=== PATIENT | female | born 1965 | race Hispanic/Latino ===

== ENCOUNTER 2017-04-07 11:51 | Emergency (ER) | payer MEDICAID ==
[2017-04-07 12:07] VITALS: RESP 18; TEMP 98.2
[2017-04-07] MEDS ORDERED: guaiFENesin 100 mg/5 ml Syrup UD PO STA (12:26)
[2017-04-07] MEDS ORDERED: Albuterol-Ipratrop 3 mg / 0.5 (3 ml) UD INH STA (12:26)
[2017-04-07] MEDS ORDERED: guaiFENesin 100 mg/5 ml Syrup UD ONE (12:37)
--- NOTE | 2017-04-07 12:45 | C.PDOC ---
History Of Present Illness A 51 year old female smoker (1/2 ppd), whose past medical history includes migraines, presents to the emergency department for dry on productive cough and right posterior chest discomfort, which began 4 days ago. The patient states she has occasionally taken cough medication, but denies taking any medications today. The patient has pure albuterol puffer technique. The patient denies any fever, chest pain, shortness of breath, abdominal pain, or any other complaints at this time. Time Seen by Provider: 04/07/17 12:21 Chief Complaint (Nursing): Cough, Cold, Congestion History/Exam Limitations: no limitations Onset/Duration Of Symptoms: Days (x 4 days) Current Symptoms Are (Timing): Still Present Associated Symptoms: Cough. denies: Fever, Nausea, Vomiting, Diarrhea Past Medical History Reviewed: Historical Data, Nursing Documentation, Vital Signs Vital Signs: Last Vital Signs Temp 98.2 F 04/07/17 12:01 Pulse 75 04/07/17 13:10 Resp 18 04/07/17 13:10 BP 120/70 04/07/17 13:10 Pulse Ox 96 04/07/17 16:34 - Medical History PMH: Migraine Surgical History: Tonsillectomy - [facility] Procedures INJECT/INFUSE NEC (03/05/13) Family History: States: Unknown Family Hx - Social History Hx Tobacco Use: No Hx Alcohol Use: No Hx Substance Use: No - Immunization History Hx Tetanus Toxoid Vaccination: No Hx Influenza Vaccination: Yes Hx Pneumococcal Vaccination: No Review Of Systems Except As Marked, All Systems Reviewed And Found Negative. Constitutional: Negative for: Fever Cardiovascular: Negative for: Chest Pain Respiratory: Positive for: Cough. Negative for: Shortness of Breath, Sputum Gastrointestinal: Negative for: Abdominal Pain Physical Exam - Physical Exam Appears: Well, Non-toxic, No Acute Distress Skin: Normal Color, Warm, Dry Head: Atraumatic, Normacephalic Eye(s): bilateral: Normal Inspection, PERRL, EOMI Nose: Normal Chest: Tenderness (Tender to the right posterior T5; no rash ), Other (No rash ) Cardiovascular: Rhythm Regular Respiratory: Rhonchi (mild scattered ronchi and wheezing ), Wheezing (mild scattered ronchi and wheezing ) Gastrointestinal/Abdominal: Normal Exam Back: Normal Inspection Extremity: Normal ROM Neurological/Psych: Oriented x3, Normal Speech, Normal Cognition, Normal Cranial Nerves ED Course And Treatment O2 Sat by Pulse Oximetry: 96 Medical Decision Making Medical Decision Making: Treatment Plan: -- EKG -- Acetaminophen, Albuterol, guaiFENesin -- Nebulizer, peak flow Progress Notes: mild viral bronchitis, NO pna/pnx, L chest costochondritis, no rash/zoster prob NOT flu from "flu shot" given 3 days ago prob related to smoking, mild bronchitis Disposition Doctor Will See Patient In The: Office Counseled Patient/Family Regarding: Studies Performed, Diagnosis - Disposition Referrals: Elsi Roach MD [Staff Provider] - Disposition: HOME/ ROUTINE Disposition Time: 12:41 Condition: GOOD Additional Instructions: albuterol puffer 2 puffs every 4 hours as needed Always use with your Aerochamber Spacer Curb smoking down to 4 ciggs/day Tylenol for R chest discomfort- costochondritis. Prescriptions: Albuterol HFA [Ventolin HFA 90 mcg/actuation (8 g)] 2 puff IH Q4H PRN #1 unit PRN Reason: asthma Spacer, Inhalation [Aerochamber] 1 dev IH DAILY #1 dev Instructions: Costochondritis (ED), Upper Respiratory Infection (ED) Forms: [address] (Macedonian) - Clinical Impression Clinical Impression: Viral bronchitis, Chest wall discomfort - Scribe Statement The provider has reviewed the documentation as recorded by the Scribe Radha Meyer All medical record entries made by the Scribe were at my direction and personally dictated by me. I have reviewed the chart and agree that the record accurately reflects my personal performance of the history, physical exam, medical decision making, and the department course for this patient. I have also personally directed, reviewed, and agree with the discharge instructions and disposition.
[2017-04-07 13:13] VITALS: BP 120/70; PULSE 75
[2017-04-07 16:34] VITALS: O2SAT 96
--- NOTE | 2017-04-10 22:42 | CARD ---
APPROVED REPORT EKG Measurement Heart [id number] <Conclusion> Normal sinus rhythm Nonspecific T wave abnormality Abnormal ECG
== END 2017-04-07 13:17 | disposition home or self-care (01) ==
LOC: C.ER 11:51
DX: J20.8 Acute bronchitis due to other specified organisms (principal); R07.89 Other chest pain; F17.210 Nicotine dependence, cigarettes, uncomplicated